=== PATIENT | male | born 1990 | race American Indian/Alaskan Native ===

== ENCOUNTER 2017-04-24 06:37 | Emergency (ER) | payer SELFPAY ==
[2017-04-24 08:24] LABS: Hematocrit 44.3 % (35.5-45.6); Hemoglobin 14.4 gm/dl (11.8-15.2); Mean Corpuscular HGB Conc 33 % (32-34); Mean Corpuscular Hemoglobin 30 pg (28-32); Mean Corpuscular Volume 91 fl (84-94); Platelet Count 280 K/mm3 (140-440); Red Blood Count 4.89 M/mm3 (3.65-5.03); Red Cell Distribution Width 13.9 % (13.2-15.2)
[2017-04-24 08:45] LABS: Alanine Aminotransferase 17 units/L (7-56); Albumin 4.9 g/dL (3.9-5); BUN/Creatinine Ratio 11; Blood Urea Nitrogen 9 mg/dL (9-20); Calcium 9.4 mg/dL (8.4-10.2); Hemolysis Index 15; Lipase 39 units/L (13-60)
[2017-04-24 09:03] LABS: Bilirubin,Urine NEG (Negative); Blood,Urine NEG (Negative); Color,Urine Yellow (Yellow); Mucus,Urine FEW /HPF; Urobilinogen,Urine < 2.0 mg/dL (<2.0)
[2017-04-24 10:15] LABS: Basophils % (Manual) 0 % (0.0-1.8); RBC Morphology Normal; Total Cells Counted 100
--- NOTE | 2017-04-24 11:15 | Emergency Department Report ---
Vomiting/Diarrhea - HPI Chief Complaint: Nausea/Vomiting/Diarrhea Stated Complaint: N/V Time Seen by Provider: 04/24/17 10:53 Duration: 1 Day Severity: moderate Nausea/Vomiting Severity: Moderate Diarrhea Severity: Mild Pain Severity: None Symptoms: Yes Watery Diarrhea, Yes Able to Tolerate Fluids, Yes Family w/ Similar Symptoms (girlfriend ), Yes Contacts w/ Similar Symptoms, No Bloody diarrhea, No Fever, No Recent Unusual Foods (Ate dinner at [facility]), No Recent Untreated Water, No Recent use of Antibiotics, No Rash, No Hematuria, No Recent URI Symptoms Other History: This is a 27 y.o. male that presents with nasea and vomiting since last night. He went to [facility] with girlfriend last night to eat dinner. They both felt fine initally but they both woke up around 1 AM with nause and vomiting. He didn't try taking anything for symptoms prior to coming in. He is tolerating fluids. Have not tried eating anything since last night. Denies fever, abdominal pain, chest pain, bloody stools, or odor. ED Review of Systems ROS: Stated complaint: N/V Other details as noted in HPI Constitutional: denies: chills, fever Respiratory: denies: cough, orthopnea, shortness of breath, SOB with exertion, wheezing Cardiovascular: denies: chest pain, palpitations Gastrointestinal: nausea, vomiting, diarrhea. denies: abdominal pain, constipation, hematochezia Genitourinary: denies: urgency, dysuria Neurological: denies: headache, weakness, paresthesias Psychiatric: denies: anxiety, depression ED Past Medical Hx - Past Medical History Previous Medical History?: No - Surgical History Past Surgical History?: No - Social History Smoking Status: Never Smoker Substance Use Type: Alcohol - Medications Home Medications: Home Medications Medication Instructions Recorded Confirmed Last Taken Type Phenazopyridine [Pyridium] 200 mg PO Q8H #9 tablet 09/18/14 Unknown Rx metroNIDAZOLE [Flagyl TAB] 500 mg PO Q8HR #21 tablet 09/18/14 Unknown Rx Ciprofloxacin HCl [Cipro] 500 mg PO BID 7 Days #14 tablet 04/24/17 Unknown Rx Metoclopramide HCl [Reglan TAB] 5 mg PO TIDAC PRN #15 tablet 04/24/17 Unknown Rx Vomiting Diarrhea Exam - Exam General: Vital signs noted. No distress. Alert and acting appropriately. HEENT: Yes Pharyngeal Erythema, Yes Moist Mucous Membranes, Yes Rhinorrhea ( clear discharge), No Pharyngeal Exudates, No Conjuctival Injection, No Frontal Tenderness, No Maxillary Tenderness Neck: No Adenopathy, No Rigidity Lungs: Yes Clear Lung Sounds, Yes Good Air Exchange, No Wheezes, No Stridor, No Cough, No Nasal Flaring, No Retractions, No Use of Accessory Muscles Heart exam: Regular: Yes, Murmur: No, Tachycardia: No Abdomen: Tenderness: No, Peritoneal Signs: No, Distention: No, Hyperactive Bowel sounds: No Skin exam: Rash: No, Edema: No Neurologic: Alert and oriented, no deficits. Musculoskeletal: Unremarkable. ED Course Vital Signs 04/24/17 07:23 Temperature 98.8 F Pulse Rate 70 Blood Pressure 116/88 O2 Sat by Pulse 99 Oximetry ED Medical Decision Making - Lab Data Result diagrams: 04/24/17 07:44 04/24/17 07:44 - Medical Decision Making 27 y.o. male that presents with nausea and vomiting that started last night. He went to dinner at [employer] last night and woke up with N/V around 0100. Girlfriend have the same symptoms. Patient examined by me, slightly distressed. Vitals stable. CBC, CMP, & UA obtained. WBC's slightly elevated, all other labs normal. Patient is not actively vomiting or diarrhea in ER. Start cipro and metoclopramide for gastroenteritist. Referred to [facility] for f/ u. Discharged home. Follow up with [facility] in 48-72 hours. Critical care attestation.: If time is entered above; I have spent that time in minutes in the direct care of this critically ill patient, excluding procedure time. ED Disposition Clinical Impression: Gastroenteritis Nausea and vomiting Qualifiers: Vomiting type: unspecified Vomiting Intractability: non-intractable Qualified Code(s): R11.2 - Nausea with vomiting, unspecified Food poisoning Qualifiers: Encounter type: initial encounter Injury intent: accidental or unintentional Qualified Code(s): T62.91XA - Toxic effect of unspecified noxious substance eaten as food, accidental (unintentional), initial encounter Disposition: - TO HOME OR SELFCARE Is pt being admited?: No Does the pt Need Aspirin: No Condition: Stable Instructions: Gastroenteritis (ED), Food Poisoning (ED) Additional Instructions: Eat a bland diet such as bread, rice, applesauce, and toast. Take cipro antibiotic as prescribed twice a day. Take reglan as needed for nausea. Follow up with [facility] or primary care provider in 24-72 hours. Return to ER if nausea and vomiting is not improved after 48 hours of medication or severe abdominal pain or fever. Prescriptions: Ciprofloxacin HCl [Cipro] 500 mg PO BID 7 Days #14 tablet Metoclopramide HCl [Reglan TAB] 5 mg PO TIDAC PRN #15 tablet PRN Reason: Nausea Referrals: [facility] [Outside] - 3-5 Days [facility] [Outside] - 3-5 Days [facility] [Outside] - 3-5 Days Forms: Work/School Release Form(ED) Time of Disposition: 12:08 Print Language: IRISH
[2017-04-24 12:15] VITALS: BP 108/60
== END 2017-04-24 12:16 | disposition home or self-care (01) ==
LOC: ED 06:37
DX: T62.91XA Toxic effect of unspecified noxious substance eaten as food, accidental (unintentional), initial encounter (principal); K52.9 Noninfective gastroenteritis and colitis, unspecified; Y92.89 Other specified places as the place of occurrence of the external cause
CPT/HCPCS: 36415; 80053; 81001; 83690; 85007; 85025; 99283

== ENCOUNTER 2017-09-21 14:40 | Emergency (ER) | payer SELFPAY ==
[2017-09-21 14:51] VITALS: BP 123/73
--- NOTE | 2017-09-21 17:59 | Emergency Department Report ---
Chief Complaint: Urogenital-Male Stated Complaint: DISCHARGE Time Seen by Provider: 09/21/17 17:50 - HPI History of Present Illness: Patient is a 27-year-old male who is presenting with a penile discharge upon urination for the past 2 days. Patient is having sex. Patient denies fevers chills nausea vomiting diarrhea at this time. - ROS Review of Systems: All systems are reviewed and are negative - Exam Vital Signs: Vital Signs 09/21/17 14:49 Temperature 98.1 F Pulse Rate 66 Respiratory 16 Rate Blood Pressure 123/73 O2 Sat by Pulse 100 Oximetry Physical Exam: Brief focused physical exam patient's abdomen is soft nontender alert and oriented 3 in no acute distress MSE screening note: Focused history and physical exam performed. Due to findings the following was ordered: ED Medical Decision Making - Medical Decision Making Patient has not medical emergency at this time. Patient has opted not been 150 day OB referred to the health department ED Disposition for MSE Clinical Impression: Urethritis Disposition: Z- MED SCREENING EXAM-LEFT Is pt being admited?: No Does the pt Need Aspirin: No Condition: Stable Forms: STI Treatment and Prevention
== END 2017-09-21 18:25 | disposition left against medical advice (07) ==
LOC: ED 14:40
DX: R36.9 Urethral discharge, unspecified (principal); Z53.21 Procedure and treatment not carried out due to patient leaving prior to being seen by health care provider
CPT/HCPCS: 99281

== ENCOUNTER 2018-03-07 13:24 | Emergency (ER) | payer OTHER ==
[2018-03-07 13:38] VITALS: BP 124/80
[2018-03-07] MEDS ORDERED: IBUPROFEN PO ONE (15:22)
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
== END 2018-03-07 16:43 | disposition home or self-care (01) ==
LOC: ED 13:24
DX: S39.012A Strain of muscle, fascia and tendon of lower back, initial encounter (principal); F17.200 Nicotine dependence, unspecified, uncomplicated; V49.49XA Driver injured in collision with other motor vehicles in traffic accident, initial encounter; Y93.89 Activity, other specified; Y92.488 Other paved roadways as the place of occurrence of the external cause; Y99.8 Other external cause status
CPT/HCPCS: 72100